=== PATIENT | female | born 1990 | race Caucasian/White ===

== ENCOUNTER 2019-04-03 13:29 | Inpatient (IN) ==
[~2019-04-03 13:29] MED LIST: CeFAZolin Syr 3,000MG/30 ML 3,000 MG/30 ML SYRINGE IVPB ONE; Famotidine 20 MG/2 ML VIAL IVP ONE; Metoclopramide 10 MG/2 ML VIAL IVP ONE; Ringers Solution, Lactated 1,000 ML ONE
[2019-04-03] MEDS ORDERED: Ringers Solution, Lactated 1,000 ML IVC SCH ×2 (13:30→17:47)
[2019-04-03] MEDS ORDERED: Azithromycin 500 MG in 0.9 % Sodium Chloride 250 ML IVPB ONE (13:31)
[2019-04-03 13:46] LABS: Basophils % 0.2 %; Eosinophils # 0.1 K/mcL (0.0-0.6); Eosinophils % 1.2 %; Hematocrit 38.4 % (35.3-44.9); Hemoglobin 13.4 g/dL (11.5-15.4); Immature Granulocytes % 0.4 % (0-4); Lymphocytes # 1.9 K/mcL (0.6-4.6); Lymphocytes % 18.8 %; Mean Corpuscular HGB Conc 34.9 g/dL (31.6-35.5); Mean Corpuscular Hemoglobin 31.5 pg (28.0-33.3); Mean Corpuscular Volume 90.4 fL (83.0-100.0); Mean Platelet Volume 10.2 fL (9.4-12.4); Monocytes # 0.6 K/mcL (0.0-1.3); Neutrophils # 7.4 K/mcL (1.6-8.9); Platelet Count 218 K/mcL (140-400); Red Blood Count 4.25 M/mcL (3.82-4.97); Red Cell Distribution Width 13.2 % (11.5-14.5); Segmented Neutrophils % 73.4 %
[2019-04-03 13:57] LABS: Amphetamine Screen,Urine Negative ng/mL (Cutoff=1000); Barbiturate Screen,Urine Negative ng/mL (Cutoff=200); Benzodiazepines Screen,Urine Negative ng/mL (Cutoff=200); Cannabinoid Screen,Urine Negative ng/mL (Cutoff = 50); Cocaine Screen,Urine Negative ng/mL (Cutoff= 300); Opiate Screen,Urine Negative ng/mL (Cutoff=300); Phencyclidine Screen,Urine Negative ng/mL (Cutoff=25)
[2019-04-03 14:46] LABS: Rubella IgG Antibody POSITIVE (POSITIVE); Varicella Zoster IgG Antibody Positive
[2019-04-03] MEDS ORDERED: Propofol 500 MG/50 ML INFUS..BTL ONE (15:01)
[2019-04-03] MEDS ORDERED: *HR* Succinylcholine 200 MG/10 ML VIAL IVP ONE (15:01)
[2019-04-03] MEDS ORDERED: *HR* FentaNYL (PF) 100 MCG/2 ML VIAL ONE ×2 (15:08→15:30)
[2019-04-03 15:15] LABS: Hepatitis B Surface Antigen Nonreactive (Nonreactive)
[2019-04-03] MEDS ORDERED: *HR* HYDROMORPHONE 2 MG/ML VIAL ONE (15:26)
[2019-04-03] MEDS ORDERED: *HR* Meperidine 50 MG/ML SYRINGE IVP PRN (15:34)
[2019-04-03 15:44] LABS: HIV-1&2 Antibody & p24 Ag Nonreactive (Nonreactive)
[2019-04-03] MEDS ORDERED: Ondansetron 4 MG/2 ML VIAL ONE (15:45)
[2019-04-03] MEDS ORDERED: Dexamethasone 4 MG/ML VIAL ONE (15:45)
[2019-04-03] MEDS ORDERED: Acetaminophen IV 1,000 MG/100 ML INFUS..BTL IVPB ONE (15:54)
[2019-04-03] MEDS ORDERED: Oxytocin 20 units/ LR 1000 mL 20 UNIT/1,000 ML BAG IVC ONE (15:56)
[2019-04-03] MEDS: *HR* HYDROmorphone (PF) 1 MG/ML SYRINGE IVP PRN ×3 (16:54→17:33)
[2019-04-03] MEDS ORDERED: Metoclopramide 10 MG/2 ML VIAL IVP PRN (17:47)
[2019-04-03] MEDS ORDERED: Oxytocin 20 units/ LR 1000 mL 20 UNIT/1,000 ML BAG IVC SCH (17:47)
[2019-04-03] MEDS ORDERED: Ondansetron 4 MG/2 ML VIAL IVP PRN (17:47)
[2019-04-03] MEDS ORDERED: Sennosides 8.6 MG TABLET PO PRN (17:47)
[2019-04-03] MEDS ORDERED: *HR* HYDROmorphone 20 MG/20 ML PCA IVC PRN ×2 (17:47→21:06)
[2019-04-03] MEDS: metroNIDAZOLE 500 MG TABLET PO SCH (21:47)
[2019-04-04] MEDS: Ibuprofen 600 MG TABLET PO PRN ×4 (01:08→20:43)
[2019-04-04 07:45] LABS: Basophils % 0.3 %; Eosinophils # 0.1 K/mcL (0.0-0.6); Eosinophils % 1.2 %; Hematocrit 30.4 % (35.3-44.9); Hemoglobin 10.3 g/dL (11.5-15.4); Immature Granulocytes % 0.5 % (0-4); Immature Platelets 3.9 % (1.1-6.1); Lymphocytes # 2.7 K/mcL (0.6-4.6); Mean Corpuscular HGB Conc 33.9 g/dL (31.6-35.5); Mean Corpuscular Hemoglobin 31.6 pg (28.0-33.3); Mean Corpuscular Volume 93.3 fL (83.0-100.0); Mean Platelet Volume 10.1 fL (9.4-12.4); Monocytes # 0.8 K/mcL (0.0-1.3); Monocytes % 7.1 %; Neutrophils # 7.4 K/mcL (1.6-8.9); Platelet Count 160 K/mcL (140-400); Red Blood Count 3.26 M/mcL (3.82-4.97); Red Cell Distribution Width 13.2 % (11.5-14.5); Segmented Neutrophils % 66.9 %
[2019-04-04] MEDS: metroNIDAZOLE 500 MG TABLET PO SCH ×2 (07:46→20:43)
[2019-04-04] MEDS: Prenatal Vit/FA 1 EACH TABLET PO SCH (07:46)
[2019-04-04] MEDS ORDERED: [UNRECOGNIZED DRUG - OTHER] PO SCH (09:00)
[2019-04-04] MEDS: *HR* OxyCODONE/APAP 5/325 TABLET PO PRN ×2 (12:10→16:57)
[2019-04-04] MEDS: Acetaminophen 325 MG TABLET PO PRN ×2 (13:34→20:43)
[2019-04-04] MEDS: Simethicone 80 MG TAB.CHEW PO PRN ×2 (13:38→20:43)
[2019-04-05] MEDS: Ibuprofen 600 MG TABLET PO PRN (05:52)
[2019-04-05] MEDS: *HR* OxyCODONE/APAP 5/325 TABLET PO PRN (05:52)
[2019-04-05 08:21] VITALS: BP 113/65
[2019-04-05] MEDS: metroNIDAZOLE 500 MG TABLET PO SCH (08:30)
[2019-04-05] MEDS: Prenatal Vit/FA 1 EACH TABLET PO SCH (08:30)
[2019-04-05] MEDS: Acetaminophen 325 MG TABLET PO PRN (08:30)
== END 2019-04-05 11:56 | disposition home or self-care (01) | DRG 540 ==
LOC: 1NENULAB → 1NENUOBS 19:47
PROVIDERS: ADMIT Obstetrics & Gynecology; ATTEND Obstetrics & Gynecology